=== PATIENT | female | born 1970 | race Caucasian/White ===

== ENCOUNTER → 2019-06-04 | Outpatient (CLI) | payer MEDICARE | END | disposition home or self-care (01) | LOC: RAH 13:57 | PROVIDERS: ATTEND Family Medicine | DX: N63.0 Unspecified lump in unspecified breast (principal); R92.8 Other abnormal and inconclusive findings on diagnostic imaging of breast | CPT/HCPCS: 76641; 77066 ==

== ENCOUNTER → 2024-03-15 | Outpatient (CLI) | payer OTHER, MEDICARE ==
[2024-03-15 17:14] LABS: ALBUMIN 3.8 g/dL (3.5-5.0); BILIRUBIN,TOTAL 0.2 mg/dL (0.2-1.0); POTASSIUM 3.8 mmol/L (3.5-5.1); TOTAL PROTEIN, SERUM 7.5 g/dL (6.0-8.3)
== END | disposition home or self-care (01) ==
LOC: LAB 10:00
PROVIDERS: ATTEND Student in an Organized Health Care Education/Training Program
DX: R07.89 Other chest pain (principal)
CPT/HCPCS: 36415; 80053

== ENCOUNTER → 2024-04-06 | Outpatient (CLI) | payer BC, OTHER | END | disposition home or self-care (01) | LOC: SHCH 15:04 | PROVIDERS: ATTEND Student in an Organized Health Care Education/Training Program | DX: R09.89 Other specified symptoms and signs involving the circulatory and respiratory systems (principal) | CPT/HCPCS: 93880 ==

== ENCOUNTER → 2024-04-13 | Outpatient (CLI) | payer BC, OTHER ==
--- NOTE | 2024-04-16 12:24 | HMCSR ---
APPROVED REPORT EXAM: Two-dimensional and M-mode echocardiogram with Doppler and color Doppler. INDICATION ICD: R07.9 Chest pain 2D Dimensions RVDd3.8 cmLVEF(%)59.8 (>50%)LVED Vol(simp.)111.0 mL IVSd0.8 (0.7-1.1cm)FS(%)32 %LVES Vol(simp.)44.0 mL LVDd4.7 (3.8-5.6cm)Ao Root(2D)3.2 (2.0-3.7cm)LVEF(%, simp.)60 % PWd0.8 (0.7-1.1cm)LVOT diam2.0 (1.8-2.4cm)LA ESV INDEX (BP)33.88 mL/m2 LVDs3.2 (2.5-4.0cm)IVC diam2.1 cm Aortic Valve AoV Vmax1.4 m/Shen Peak GR7.9 mmHgLVOT Vmax1.3 m/s AoV VTI0.3 mAo Mean GR4.4 mmHgLVOT VTI0.29 m ZENY (VMAX)2.8 cm2AVA (VTI) 2.8 cm2 Mitral Valve MV E Vmax79.3 cm/sDECEL Dvsu738 ms MV A Vmax73.8 cm/sP 1/2 T57 ms E/A ratio1.1MVA (PHT)3.8 cm2 TDI E/E' Medial9.9E/E' Lateral9.3 Pulmonary Valve PV Vmax1.0 m/sPV VTI0.24 mPV Mean GR2 mmHg PV Peak GR4.3 mmHg Tricuspid Valve TR Vmax2.2 m/sRAP (EST) 8 aeYhLEPN69.7 mmHg TR Peak GR19.7 mmHg Left Ventricle The left ventricle structure and function is normal. There is normal LV segmental wall motion. There is normal left ventricular wall thickness. LVEF is 55-60%. Left ventricular filling pattern is normal for age. Right Ventricle The right ventricle is normal size. The right ventricular systolic function is normal. Atria The left atrium size is normal. Atrial septal aneurysm is present. The right atrium size is normal. Aortic Valve Aortic valve is trileaflet. Aortic valve leaflets are sclerotic but open well. Trace aortic regurgita tion. There is no aortic valvular stenosis. Mitral Valve Mitral valve leaflets are mildly sclerotic but open well. Mitral regurgitation is trace. There is no mitral valve stenosis. Tricuspid Valve The tricuspid valve leaflets appear normal. There is trace tricuspid regurgitation. Pulmonic Valve Pulmonic valve is not well visualized. Great Vessels The aortic root is normal in size. IVC is not well visualized. Pericardium No pericardial effusion. Other Information Quality : Fair Conclusion The left ventricle structure and function is normal. LVEF is 55-60% with no wall motion abnormalities . Left ventricular filling pattern is normal for age. The right ventricular systolic function is normal. Both atria are normal in size. No hemodynamically significant valvular abnormalities. No pericardial effusion.
== END | disposition home or self-care (01) ==
LOC: SHCH 14:57
PROVIDERS: ATTEND Student in an Organized Health Care Education/Training Program
DX: I08.0 Rheumatic disorders of both mitral and aortic valves (principal); R07.9 Chest pain, unspecified
CPT/HCPCS: 93306

== ENCOUNTER → 2024-12-12 | Outpatient (CLI) | payer OTHER, MEDICARE ==
[~2024-12-12] MED LIST: IOHEXOL 350 MG/ML 100ML INFUS..BTL IV ONE
--- NOTE | 2024-12-14 11:56 | CARDIOLOGY ---
RAD REPORT: CORNARY CT ANGIO RADIOLOGY REPORT: CORONARY CT ANGIOGRAPHY DATE: Dec 14, 2024 QUALITY: Excellent CLINICAL HISTORY AND INDICATION: [ preop evaluation ] TECHNIQUE: After obtaining a preliminary chief of safety and protection image, contrast imaging performed on an [employer] [id number] scanner. A dedicated, limited window, coronary imaging protocol was used, with single breath-hold, retrospective ECG gating, and automated arrhythmia rejection. 100 cc of low osmolar contrast agent: Omnipaque 350 was delivered via a 18-gauge IV catheter in the right antecubital fossa, using a power injector and followed by 60 cc of normal saline bolus as a chaser. Collimated images were reformatted at 0.5 mm intervals, and sent to an offline independent workstation for interpretation, using 3D anatomic reconstructions: Curved multiplanar reconstructions, maximum intensity projections, and multiplanar imaging. No metoprolol was administered prior to scanning due to low baseline heart rate. 0.8 mg SL nitroglycerin was given. CORONARY ARTERY DESCRIPTIONS: The coronary arteries arise in normal position. Left main coronary artery: Normal caliber vessel that bifurcates into the LAD and LCx. No stenosis. Left anterior descending coronary artery: Normal caliber vessel and gives rise to diagonal and septal branches. No stenosis. Left circumflex coronary artery: Normal caliber, nondominant and gives rise to a large OM branch. No stenosis. Right coronary artery: Large, dominant vessel giving rise to the PL and PDA branches. No stenosis. CAD-RADs: 0, absence of CAD. Thoracic Aorta: Normal diameter. Jennifer Reza MD Cardiovascular Disease [facility] JENNIFER REZA MD Dec 14, 2024 11:56
== END | disposition home or self-care (01) ==
LOC: RAH 07:41
PROVIDERS: ATTEND Student in an Organized Health Care Education/Training Program
DX: Z01.810 Encounter for preprocedural cardiovascular examination (principal); R07.9 Chest pain, unspecified
CPT/HCPCS: 75574; J3490; Q9967 ×2